=== PATIENT | male | born 1970 | race Two or more races ===

== ENCOUNTER 2022-07-17 15:23 | Emergency (ER) | payer OTHER ==
[~2022-07-17] VITALS: Ht 175.3 cm; Wt 85.7 kg
[~2022-07-17 15:23] MED LIST: ATENOLOL25 MG; COREG CR10 MG; CRESTOR10 MG; MEDROLPACK PO; NEURONTIN300 MG PO; VASERETIC 10-251 TA1
[2022-07-17] MEDS ORDERED: PEPCID AC20 MG PO (20:13)
[2022-07-17] MEDS ORDERED: LEVSIN/SL0.125 MG SL (20:13)
== END 2022-07-17 20:24 | disposition home or self-care (01) ==
LOC: ER 15:23
DX: R10.32 Left lower quadrant pain (principal); Z20.822 Contact with and (suspected) exposure to COVID-19

== ENCOUNTER 2022-11-15 21:11 | Emergency (ER) | payer OTHER ==
[~2022-11-15] VITALS: Ht 170.2 cm; Wt 89.4 kg
[~2022-11-15 21:11] MED LIST changes: +LEVSIN/SL0.125 MG SL; +PEPCID AC20 MG PO
[2022-11-15] MEDS ORDERED: METAXALONE800 MG PO (23:02)
[2022-11-15] MEDS ORDERED: CELEBREX200MG PO (23:02)
[2022-11-15] MEDS ORDERED: TYLENOL ARTHRI650 MG PO (23:02)
[2022-11-15] MEDS ORDERED: MEDROLPACK PO (23:03)
== END 2022-11-15 23:17 | disposition home or self-care (01) ==
LOC: ER 21:11
DX: M62.838 Other muscle spasm (principal); S39.012A Strain of muscle, fascia and tendon of lower back, initial encounter; I10 Essential (primary) hypertension

== ENCOUNTER 2024-09-21 12:00 | Inpatient (IN) | payer OTHER ==
[~2024-09-21] VITALS: Ht 213.4 cm; Wt 89.8 kg
[~2024-09-21 12:00] MED LIST changes: +CELEBREX200MG PO; +METAXALONE800 MG PO; +TYLENOL ARTHRI650 MG PO
[2024-09-21 13:48] VITALS: BP 125/80
[2024-09-21] MEDS ORDERED: CRESTOR40 MG (13:53)
[2024-09-21] MEDS ORDERED: TENORMIN25 MG PO (13:53)
[2024-09-21] MEDS ORDERED: KLONOPIN (13:54)
[2024-09-21] MEDS ORDERED: ABILIFY30 MG PO (13:54)
[2024-09-21] MEDS ORDERED: RESTORIL (13:55)
[2024-10-02] MEDS ORDERED: ARIPIPRAZOLE15 MG (13:26)
[2024-10-02] MEDS ORDERED: LAMICTAL200 MG (13:26)
[2024-10-02] MEDS ORDERED: CLONAZEPAM1 MG (13:26)
[2024-10-02] MEDS ORDERED: ATENOLOL50 MG (13:26)
[2024-10-02] MEDS ORDERED: RESTORIL30 MG (13:26)
[2024-10-02] MEDS ORDERED: BUPIVACAINE HCL/MPF 0.5% 30ML VIAL ONE (15:04)
[2024-10-02] MEDS ORDERED: METRONIDAZOLE/SODIUM CHLORIDE 500 MG/100 ML PIGGYBACK IV ONE (15:05)
[2024-10-02] MEDS ORDERED: CEFTRIAXONE SODIUM 2,000 MG VIAL ONE (15:05)
[2024-10-02] MEDS ORDERED: LIDOCAINE HCL 1%/EPINEPHRINE 20ML VIAL IJ ONE (15:05)
[2024-10-02] MEDS ORDERED: MORPHINE SULFATE 4 MG/ML CARTRIDGE IV PRN (15:45)
[2024-10-02] MEDS ORDERED: ONDANSETRON HCL 2 MG/ML VIAL IV PRN (15:45)
[2024-10-02] MEDS ORDERED: OxyCODONE HCL 5 MG TABLET (ROXICODONE) PO PRN (15:45)
[2024-10-02] MEDS ORDERED: 0.9 % SODIUM CHLORIDE 1,000 ML IV SCH (15:45)
[2024-10-02] MEDS ORDERED: DEXTROSE 50 % IN WATER 0.5 G/ML DISP.SYRIN IV PRN (15:45)
[2024-10-02] MEDS ORDERED: GABAPENTIN 300 MG CAPSULE PO SCH (17:00)
[2024-10-02] MEDS ORDERED: HYOSCYAMINE SULFATE 0.125 MG TAB.SUBL SL SCH (17:00)
[2024-10-02] MEDS ORDERED: POLYETHYLENE GLYCOL 3350 17 GM BLIST.PACK PO SCH (17:00)
[2024-10-02] MEDS ORDERED: METRONIDAZOLE/SODIUM CHLORIDE 500 MG/100 ML PIGGYBACK IV SCH (17:00)
[2024-10-02] MEDS ORDERED: MORPHINE SULFATE 4 MG/ML VIAL IV ONE ×2 (18:15→18:45)
[2024-10-02 19:00] VITALS: BP 124/77; O2SAT 94
[2024-10-02 19:46] LABS: HEMATOCRIT 39.3 % (39.0-48.0); HEMOGLOBIN 13.7 g/dL (13-16.00); MEAN CELL VOLUME 83.7 fL (80.0-100.00); MEAN CORPUSCULAR HEMOGLOBIN 29.1 pg (27.00-32.0); MEAN CORPUSCULAR HGB CONC 34.7 g/dl (32.0-36.0); PLATELET COUNT 231 K/uL (150-450); RED CELL DISTRIBUTION WIDTH 15.1 % (11.5-14.5)
[2024-10-02] MEDS ORDERED: ACETAMINOPHEN 500 MG GEL..CAP PO SCH (20:00)
[2024-10-02 20:02] LABS: ALBUMIN 3.9 gm/dL (3.4-5.0); CALCIUM 9.2 mg/dL (8.5-10.1); CREATININE SERUM 0.79 mg/dL (0.70-1.30); GFR 101.83; POTASSIUM 3.7 mEq/L (3.5-5.1)
[2024-10-02] MEDS ORDERED: CLONAZEPAM 1 MG TABLET PO SCH (21:00)
[2024-10-02] MEDS ORDERED: FAMOTIDINE/PF 20 MG/2 ML VIAL IV PUSH SCH (21:00)
[2024-10-02] MEDS ORDERED: CELECOXIB 200 MG CAPSULE PO SCH (21:00)
[2024-10-03 02:06] VITALS: BP 125/74; O2SAT 92
[2024-10-03 05:27] LABS: HEMATOCRIT 37.1 % (39.0-48.0); MEAN CELL VOLUME 84.3 fL (80.0-100.00); MEAN CORPUSCULAR HGB CONC 34.3 g/dl (32.0-36.0); PLATELET COUNT 192 K/uL (150-450); RED CELL DISTRIBUTION WIDTH 14.8 % (11.5-14.5)
[2024-10-03 05:40] LABS: HEMOGLOBIN 12.7 g/dL (13-16.00); MEAN CORPUSCULAR HEMOGLOBIN 28.8 pg (27.00-32.0)
[2024-10-03 05:53] LABS: ALBUMIN 3.4 gm/dL (3.4-5.0); CALCIUM 8.6 mg/dL (8.5-10.1); CREATININE SERUM 0.77 mg/dL (0.70-1.30); GFR 104.89; MAGNESIUM 1.8 mg/dL (1.8-2.4); PHOSPHOROUS 3.2 mg/dL (2.5-4.9); POTASSIUM 3.6 mEq/L (3.5-5.1)
[2024-10-03 08:00] VITALS: BP 130/60; O2SAT 96
[2024-10-03] MEDS ORDERED: ENALAPRIL MALEATE 10 MG TABLET PO SCH (09:00)
[2024-10-03] MEDS ORDERED: ATENOLOL 50 MG TABLET PO SCH (09:00)
[2024-10-03 16:26] VITALS: BP 96/54; O2SAT 97
[2024-10-03] MEDS ORDERED: ENOXAPARIN SODIUM 40 MG/0.4 ML SYRINGE SUBCUTANEO SCH (17:00)
[2024-10-04 08:00] VITALS: BP 123/76; O2SAT 94
[2024-10-04] MEDS ORDERED: ENOXAPARIN SODIUM 40 MG/0.4 ML SYRINGE SUBCUTANEO SCH (09:00)
[2024-10-04 16:00] VITALS: BP 132/72; O2SAT 98
[2024-10-05] VITALS: BP 10/63; O2SAT 95
[2024-10-05 08:13] VITALS: BP 124/72; O2SAT 95
[2024-10-05] MEDS ORDERED: TRAM1TAB98 PO (09:28)
[2024-10-05] MEDS ORDERED: HYOSCYAMINE0.125 M1 SL (09:28)
[2024-10-05] MEDS ORDERED: PEPCID AC20 MG PO (09:29)
== END 2024-10-05 10:16 | disposition home or self-care (01) | DRG 331 ==
LOC: SURH 10-02 07:00 → O/R 10-02 07:26 → SURH 10-02 07:26
PROVIDERS: ADMIT Surgery; ATTEND Surgery
PROC: 07BC4ZZ Excision of Pelvis Lymphatic, Percutaneous Endoscopic Approach (ICD-10-PCS; 2024-10-02)
PROC: 07BB4ZZ Excision of Mesenteric Lymphatic, Percutaneous Endoscopic Approach (ICD-10-PCS; 2024-10-02)
PROC: 0DTF4ZZ Resection of Right Large Intestine, Percutaneous Endoscopic Approach (ICD-10-PCS; principal; 2024-10-02 07:00)
DX: K57.32 Diverticulitis of large intestine without perforation or abscess without bleeding (principal); R59.0 Localized enlarged lymph nodes; E78.5 Hyperlipidemia, unspecified; I10 Essential (primary) hypertension